=== PATIENT | female | born 2000 | race Hispanic/Latino ===

== ENCOUNTER 2022-12-26 23:27 | Emergency (ER) | payer BC, MEDICAID ==
[~2022-12-26] VITALS: Ht 157.5 cm; Wt 59.4 kg
[2022-12-26 23:28] VITALS: BP 118/80
[2022-12-27] LABS: RAPID GROUP A STREP negative (NEGATIVE); SARS-CoV-2, RNA, NAAT POSITIVE SARS CoV-2 (NEGATIVE)
[2022-12-27] MEDS ORDERED: PENICILLIN G BENZATHINE LA 1.2 MILUNITS/2 ML SYG IM ONE
[2022-12-27] MEDS ORDERED: KETOROLAC 60 MG VIAL (30MG/ML) IM ONE
[2022-12-27 00:07] LABS: INFLUENZA TYPE A Negative For Type A (NEGATIVE); INFLUENZA TYPE B Negative For Type B (NEGATIVE)
[2022-12-27 00:38] LABS: APPEARANCE,URINE CLEAR (CLEAR); BILIRUBIN,URINE NEGATIVE (NEGATIVE); COLOR,URINE LIGHT-YELLOW (YELLOW); GLUCOSE, URINE (UA) NEGATIVE (NEGATIVE); KETONES,URINE 40 mg/dL (NEGATIVE); LEUKOCYTE ESTERASE ,URINE NEGATIVE Leu/uL (NEGATIVE); NITRATE,URINE NEGATIVE (NEGATIVE); OCCULT BLOOD,URINE LARGE (NEGATIVE); PROTEIN,URINE NEGATIVE (NEGATIVE); UROBILINOGEN,URINE 0.2 mg/dL (0.2-1.0)
[2022-12-27 00:45] LABS: ADD UA MICROSCOPIC YES
[2022-12-27 00:49] LABS: BACTERIA,URINE RARE /HPF (None Seen); MUCUS,URINE RARE LPF (None Seen); SQUAMOUS EPITHELIAL CELL,UR RARE /HPF (0-2)
[2022-12-27 02:12] VITALS: PULSE 88; RESP 20; O2SAT 99
== END 2022-12-27 02:14 | disposition home or self-care (01) ==
LOC: EDH 23:27
DX: U07.1 COVID-19 (principal); J03.90 Acute tonsillitis, unspecified
CPT/HCPCS: 99284; 87635; 87880; 87804 ×2; 87797; 87486; 81001; 96372 ×2; C9803; J0561; J1885